=== PATIENT | female | born 1965 | race Asian ===

== ENCOUNTER 2023-02-18 19:28 | Emergency (ER) | payer OTHER ==
[~2023-02-18] VITALS: Ht 157.5 cm; Wt 57.6 kg
[2023-02-18 19:30] VITALS: BP 169/91; TEMP 98.5
[2023-02-18 20:56] LABS: PLATELET COUNT 195 K/uL (152-353)
[2023-02-19] MEDS ORDERED: TYLENOL RE (11:00)
[2023-02-19] MEDS ORDERED: LORA0.5T17 PO (11:01)
[2023-02-19] MEDS ORDERED: ACTOS15 MG PO (11:01)
[2023-02-19] MEDS ORDERED: PEPCID40 MG PO (11:02)
[2023-02-19] MEDS ORDERED: KEPPRA750 MG PO (11:02)
[2023-02-19] MEDS ORDERED: HYDR-3182 PO (11:03)
[2023-02-19] MEDS ORDERED: MELATONIN5 M4 PO (11:03)
[2023-02-19] MEDS ORDERED: NOVOLOG100 UNIT/M SC ×2 (11:05→11:07)
[2023-02-19] MEDS ORDERED: PERIDEX0.12 % MT (11:08)
[2023-02-19] MEDS ORDERED: K-TAB20 MEQ PO (11:09)
[2023-02-19] MEDS ORDERED: PHOS-NAK PO (11:09)
[2023-02-19] MEDS ORDERED: TEMA15CA19 PO (11:10)
[2023-02-19] MEDS ORDERED: SEMGLEE100 UNIT/1 SC (11:11)
[2023-02-19] MEDS ORDERED: SERT50TA PO (11:11)
[2023-02-25] MEDS ORDERED: VITAMIN D50000 UNIT PO (11:02)
[2023-02-25] MEDS ORDERED: FAMOTIDINE20 MG PO (11:03)
[2023-02-25] MEDS ORDERED: INSUINJ20 SC (11:03)
[2023-02-25] MEDS ORDERED: LORA0.5T17 PO (11:04)
[2023-02-25] MEDS ORDERED: LEVE500T5 PO (11:04)
[2023-02-25] MEDS ORDERED: INSU-1996 SC (11:04)
[2023-02-25] MEDS ORDERED: SERT50TA PO (11:05)
[2023-02-25] MEDS ORDERED: MELATONIN MAXIMU5 MG PO (11:05)
[2023-02-25] MEDS ORDERED: POTA20TA4 PO (11:05)
[2023-02-25] MEDS ORDERED: PIOG30TA PO (11:05)
[2023-02-25] MEDS ORDERED: TEMA15CA19 PO (11:06)
== END 2023-02-18 22:30 | disposition other institution (70) ==
LOC: ED 19:28
PROVIDERS: Family Medicine
DX: Z04.6 Encounter for general psychiatric examination, requested by authority (principal); R45.1 Restlessness and agitation; I10 Essential (primary) hypertension; E11.9 Type 2 diabetes mellitus without complications; F41.9 Anxiety disorder, unspecified; Z89.612 Acquired absence of left leg above knee; Z89.611 Acquired absence of right leg above knee
CPT/HCPCS: 80053; 81002; 85027; 93005; 99283